=== PATIENT | female | born 1945 | race Caucasian/White ===

== ENCOUNTER → 2017-11-13 08:55 | Outpatient (CLI) | payer MEDICARE, SELFPAY ==
--- NOTE | 2017-11-13 09:16 | DI.MRI.S_ITS ---
BREAST MRI OF BOTH BREASTS - POST LUMPECTOMY: 11/13/2017 CLINICAL: Left breast cancer. Comparison is made to exams dated: 10/08/2017 mammogram, 10/02/2017 mammogram, and 08/29/2016 mammogram - [facility]. Informed consent was obtained from the patient. Axial T1, T2, and pre and post contrast T1 images were obtained. Bilateral background breast enhancement is minimal. Both breasts and the left axilla have post-operative findings. There is a 0.7 cm x 0.5 cm x 0.4 cm irregular mass with a spiculated margin in the left breast at 1 o'clock middle depth. This shows delayed washout type vascular enhancement. There is non-masslike enhancement immediately lateral to the mass measuring 10 x 6 mm. In aggregate the two measure 12 mm. There are no abnormal masses, enhancement or distortion in the right breast. No abnormal axillary lymph nodes. IMPRESSION: KNOWN BIOPSY PROVEN MALIGNANCY The 0.7 cm x 0.5 cm x 0.4 cm irregular mass in the left breast is a known biopsy positive for malignancy. There is non-masslike enhancement at it's lateral margin which is also consistent with malignancy. Together they measure 12 mm. Associated post biopsy marker. No MRI evidence of right breast malignancy or axillary abnormality. This exam was interpreted at Station ID: [id number]. Electronically Signed By: Aubrey Sellers M.D. cj/:11/13/2017 14:36:12 copy to: OTIS MERCHANT ACR BI-RADS Category 6: Known biopsy proven malignancy 3346F
[2017-11-13 11:04] LABS: Estimated Glomerular Filt Rate > 60.0 mL/min (>60)
== END ==
PROVIDERS: PCP Family Medicine; Visit Provider Surgery
DX: C50.412 Malignant neoplasm of upper-outer quadrant of left female breast (principal)
CPT/HCPCS: 36415; 82565; A9579; C8908

== ENCOUNTER 2017-12-17 07:42 | Day surgery (SDC) | payer MEDICARE, SELFPAY ==
[2017-12-03 16:59] VITALS: BMI 36.0
[2017-12-17] VITALS (8 sets, daily range): BP systolic 110–155; BP diastolic 49–83; PULSE 59–78; RESP 13–20; TEMP 36.1–37.1; O2SAT 94–99; BMI 36.0
--- NOTE | 2017-12-17 | PATH_ITS ---
[facility] Accession Number: [id number] . 01 Material submitted: . LEFT BREAST AND AXILLARY CONTENTS . 01 Clinical history: . A: SHORT STICH SUPERIOR, LONG STITCH LATERAL . 02 Diagnosis: Left Breast and Axillary Contents: Invasive carcinoma of the breast (see breast cancer summary below). . CAP CANCER CASE SUMMARY Invasive carcinoma of the breast: . Procedure: Total mastectomy with axillary tail. Specimen Laterality: Left. . Tumor site: Upper outer quadrant. Tumor size: Greatest dimension of invasive carcinoma is 1.0 cm. Histologic type: Invasive ductal carcinoma with distinct apocrine features. Histologic grade: Reasnor histologic score 7 of 9. Glandular/Tubular differentiation: Score 3 of 3. Nuclear Pleomorphism: Score 2 of 3. Mitotic Rate: Score 2 of 3. Overall Grade: Grade 2 of 3. Tumor focality: Single focus of invasive carcinoma. Ductal carcinoma in situ: Not identified. . Tumor Resection Margins Invasive carcinoma: Anterior: 0.9 cm. Posterior: 3.3 cm. Superior: 5.5 cm. Inferior: 11.3 cm. Medial: 10.6 cm. Lateral: 5.6 cm. . Ancillary studies: Hormone receptors and HER-2/roahn studies not performed on this specimen (presumably performed on previous biopsy). . Pathologic Stage: pT1b, pN0. [facility]/12/23/2017 . 02 Electronically signed: . Terry Baker MD, Pathologist NPI- [id number] . 01 Gross description: . Received in formalin, labeled left breast + axillary contents, is a left breast (5.7 cm AP, 17.5 cm SI, 16.8 cm ML) partially covered by the nipple areolar complex (3.7 x 2.8 cm). The axillary tail (8.5 x 8.0 x 2.7 cm) is attached. The specimen is oriented with two black sutures (short-superior, long-lateral). No localization wire is present. The specimen is serially sectioned ML into 39 slices with the medial and lateral resection margins as slice #1 and #39, respectively. The breast tissue is fatty and contains a garcia-white solid firm irregular mass (1.2 x 0.8 x 0.6 cm) within slices #25 and #26 involving the upper outer quadrant at approximately 1 o'clock-2 o'clock. The mass is 0.9 cm from the anterior, 3.3 cm from the posterior, 5.5 cm from the superior, 11.3 cm from the inferior, 10.6 cm from the medial, and 5.6 cm from the lateral resection margins. No other nodules, masses or lesions are identified. The nipple areolar complex is garcia and unremarkable. Multiple possible lymph nodes (0.1 cm-0.5 cm) are identified within the axillary tail. Ink code: purple-anterior; yellow-posterior; black-superior; orange-inferior; green-medial; blue-lateral. Section code: (A1) nipple; (A2) medial resection margin, perpendicularly sectioned, labor relations representative; (A3) slice #18, labor relations representative; (A4) slice #22, labor relations representative; (A5) slice #24, tissue adjacent to mass, labor relations representative; (A6-A8) slice #25, labor relations representative; (A9) slice #26, labor relations representative; (A10) slice #27, tissue adjacent to mass, labor relations representative; (A11) lateral resection margin, perpendicularly sectioned, labor relations representative; (A12) multiple intact lymph nodes. Note: Approximate total fixation time in formalin - 59 hours 30 minutes, calculated using a collection date of 12/17/2017 with no collection time given. ([id number]) /MRV . 02 Microscopic: . Sections from the breast reveal the grossly described tumor to be an infiltrating carcinoma, the cells of which have a distinct apocrine appearance. The nuclei are round with small distinct nucleoli and rather abundant foamy pale pink cytoplasm. The tumor cells are arranged primarily in broad sheets, although there are some areas in which tubule formation is present, but it is less than 10% of the tumor. Mitotic figures are identified and number approximately 5 to 6 per millimeter squared. Tumor cell nuclei are considered intermediate (score 2 of 3) and the tubular differentiation is low (score 3 of 3). In situ carcinoma is not identified. The largest area of invasive carcinoma is measured at approximately 1 cm on the slide with some resolving adjacent fat necrosis, which explains the gross measurement from 1.2 cm. There is no evidence of vascular invasion or lymphatic channel invasion, and the resection margins are widely free of tumor as was grossly described. . The sections from the axillary tail contain three small lymph nodes which are negative for malignancy. . 02 Pathologist provided ICD-10: C50.412 . 02 CPT . 113230 Performed at: 01 [facility] [address] [facility], [place], [place] [id number] MD Jonh Burks MD Phone: [phone] Performed at: 02 [facility] [id number] [place] [id number] MD Pasha Lagos MD Phone: [phone]
--- NOTE | 2017-12-17 | DI.NM.S_ITS ---
PROCEDURE: NM SENTINEL NODE W IMAGING RADIOPHARMACEUTICAL: 0.50 mCi Millipore filtered Tc-99m sulfur colloid x2. INDICATIONS: LEFT BREAST CANCER TECHNIQUE: The area around the nipple was prepped and draped in a sterile fashion. Tc-99m sulfur colloid was injected intra-dermally in the outer edge of the areola in the left breast. Images were obtained subsequently. A body contour outline was obtained. FINDINGS: There is no visualization of lymph nodes in the ipsilateral axilla despite two radiotracer injections. IMPRESSION: Administration of radiotracer into the left breast periareolar region for intra-operative sentinel lymph node localization. Dictated by: Shonna Hubbard MD, PhD on 12/17/2017 at 9:36 Approved by: Shonna Hubbard MD, PhD on 12/17/2017 at 9:39
--- NOTE | 2017-12-17 09:17 | SUR.PREOP ---
pt back to opd from radiology at 0900, family at side, no co's
--- NOTE | 2017-12-17 11:31 | PM.PREOP ---
Pre-operative Note Interval Note Pre-op Check: Yes History & Physical Reviewed by Physician Changes: No
--- NOTE | 2017-12-17 11:50 | SUR.OPER ---
Supine on padded OR bed, head on pillow, arms secured on padded arm boards at <90 degrees abduction, legs uncrossed, safety belt at thigh, tape over blanket over lower legs.
[2017-12-17] MEDS: CEFAZOLIN 2 GM/100 ML FROZ.PIGGY IV (12:00)
[2017-12-17] MEDS: BUPIVACAINE 0.5% (PF) VIAL 30 ML INJ (12:52)
[2017-12-17] MEDS: LIDOCAINE 1% W/EPI INJ 20 ML INJ (12:53)
--- NOTE | 2017-12-17 13:53 | PM.OP.1 ---
Operative Date/Time/Diagnoses Date of procedure: 12/17/17 Time of procedure: 13:53 Pre-op diagnosis: Recurrent left breast cancer Post-op diagnosis: same Procedure & Clinicians Procedure: Left breast skin sparing mastectomy with low axillary dissection Same procedure as scheduled: Yes Indications: Second primary left breast cancer Surgeon: Barb Orr Click Yes if Unassisted: Yes Anesthesia Type: General (Dr. Maki) and Local Operative Notes Findings: 1. Technetium sulfur colloid did not travel beyond the injection site. The sentinel node procedure did not work 2. Skin well vascularized with no evidence of locally advanced disease Closure Type: primary Specimen(s): other (Left breast and axillary contents to pathology in formalin) Implants & Drains: Applied: drain(s) (Nineteen Egyptian Noel drain in the inferior pocket) Estimated Blood Loss (mL): 40 Procedure in detail: After obtaining informed consent, the patient is brought to the operating room and placed in the supine position on the operating table. Following successful induction of general endotracheal anesthesia, appropriate padding of all bony prominences, and placement of appropriate monitors, the left chest and axilla are prepped and draped in the standard surgical fashion. A time-out was held per SCOAP protocol. We began by using the Navigator probe to identify the sentinel nodes in the left axilla. No sentinel node could be identified. Background in the room was 0, background in the axilla was 0. Review of the mapping studies following injection revealed no lymphatic uptake of the isotope. At this point, the sentinel node procedure was abandoned. We continued our procedure with a mastectomy. The existing inferior vertical incision was reopened and extended around the nipple along the lines of the existing incision created at the time of the patient's left breast reduction. Thin tissue flaps were created superiorly, medially, inferiorly, and laterally by using traction and counter-traction to carefully defined and then separate the subcutaneous tissue from the breast tissue on the left side. Judicious use of sharp dissection and Bovie cautery developed these planes. Dissection was continued superiorly to a level just inferior to the left clavicle, medially to the sternum, inferiorly to the inframammary fold and laterally to the latissimus. Dissection was continued superiorly into the axilla taking the low axillary contents with the specimen. The axillary vein was not skeletonized but dissection was continued medially to the pectoralis, laterally to the latissimus, and superiorly to visualize but not skeletonize the axillary vein. The breast was then removed from the chest wall in a medial to lateral fashion. The wound was then checked for hemostasis and irrigated copiously with warm water. The breast was passed from the table after marking it with a short stitch superior and a long stitch lateral. A 19 Egyptian Noel drain was placed in the inferior pocket and brought out in the inferior medial position. This was sewn into place with a nylon suture. The remaining breast incision was closed in 2 layers with Vicryl and Monocryl sutures. Exofen was applied to the incisions. All sponge, needle, and instrument counts were correct at the conclusion of the case. Complications: none Condition: stable Disposition: PACU Plan for aftercare: 1. Discharge to home 2. Follow up with me as previously scheduled.
[2017-12-17] MEDS: OXYCODONE/ACETAMINOPHEN 5/325 TABLET 1 TAB PO (15:04)
--- NOTE | 2017-12-17 15:58 | SUR.PHASEII ---
patient alert and oriented with steady gait. Drain teaching provided to patient and family. Pt verbalizes understanding through teachback method. Reports 1/10 pain and no nausea. To car via wc with spouse and daughter.
== END 2017-12-17 15:50 | disposition home or self-care (01) ==
PROVIDERS: PCP Family Medicine; Visit Provider Surgery
PROC: 0HTU0ZZ Resection of Left Breast, Open Approach (ICD-10-PCS; CPT 19304; principal; 2017-12-17 09:30)
DX: C50.912 Malignant neoplasm of unspecified site of left female breast (principal)
CPT/HCPCS: 19304; 78195; 88309; A9541; J0690; J1100; J2250; J2405; J2704; J3010

== ENCOUNTER 2017-12-23 00:55 | Emergency (ER) | payer MEDICARE, SELFPAY ==
[2017-12-23 00:59] VITALS: BP 156/82; PULSE 60; RESP 18; TEMP 37.1; O2SAT 99
[2017-12-23 01:00] VITALS: BP 156/82; PULSE 60; RESP 18; TEMP 37.1; O2SAT 99
[2017-12-23 01:06] VITALS: BP 156/82; PULSE 60; RESP 18; TEMP 37.1; O2SAT 99
--- NOTE | 2017-12-23 01:10 | ED.WOUNDLAC ---
HPI - Wound/Laceration General Chief Complaint: Wound/Laceration Stated Complaint: Bleeding in Drain Time Seen by Provider: 12/23/17 01:00 Source: patient and EMS Mode of arrival: EMS Limitations: no limitations History of Present Illness HPI narrative: 72F with history of breast cancer had L mastectomy a few days ago and presents by EMS for evaluation of significant bleeding from the incision as well as some filling of the RAYO. Her drain had been empty for few days and she had done quite well. She denies any pain, fever or chills and states that all of a sudden today while standing in the kitchen she developed bloody drainage and at that time felt a bit dizzy and lightheaded. She felt much better by her arrival in the bleeding had stopped. She had not yet contacted her surgeon. Onset (ago): minute(s) Location: chest 1. Place: home Patient tetanus UTD: Yes Context: accidental Associated symptoms: none Related Data Home Medications Medication Instructions Recorded Confirmed aspirin 81 mg tablet,delayed 81 mg PO DAILY 11/04/17 12/17/17 release azelastine 0.05 % eye drops 1 drp EYE-BOTH PRN PRN ml 11/04/17 12/17/17 cetirizine 10 mg tablet 5 mg PO DAILY PRN 11/04/17 12/17/17 cholecalciferol (vitamin D3) 5,000 5,000 unit PO DAILY 11/04/17 12/03/17 unit capsule clobetasol 0.05 % topical ointment 1 applictn TOP BID 11/04/17 12/03/17 fluticasone 250 mcg/actuation 1 inhalation INHALATION ONCE each 11/04/17 12/17/17 blister powder for inhalation magnesium 200 mg tablet 800 mg PO ONCE tab 11/04/17 12/03/17 omeprazole 20 mg capsule,delayed 20 mg PO DAILY 11/04/17 12/17/17 release tacrolimus 0.1 % topical ointment 1 applictn TOP BID 11/04/17 12/03/17 trazodone 150 mg tablet 75 mg PO DAILY 11/04/17 12/17/17 vitamin [id number] B1 1,000 ml IM SEEINSTR 11/04/17 11/04/17 mcg-100 mg/mL injection solution zinc 50 mg tablet 50 mg PO DAILY 11/04/17 12/03/17 calcium carbonate [Calcium 600] 1,200 mg PO DAILY 12/03/17 12/03/17 cyclosporine [Restasis] 2 drp EYE-BOTH DAILY 12/03/17 12/03/17 fluticasone [Flovent Diskus] 2 inh INHALATION Q12H 12/17/17 12/17/17 Previous Rx's Medication Instructions Recorded ondansetron 4 mg PO QID PRN #20 tab 12/17/17 oxycodone-acetaminophen [Percocet] 1 tab PO Q4-6H PRN #30 tab MDD 6 12/17/17 Allergies Allergy/AdvReac Type Severity Reaction Status Date / Time budesonide [From Symbicort] Allergy Mild Rash Verified 12/17/17 09:19 formoterol [From Symbicort] Allergy Mild Rash Verified 12/17/17 09:19 lanolin Allergy Mild Rash Verified 12/17/17 09:19 dust AdvReac Mild Sneezing Uncoded 12/03/17 17:11 Review of Systems Review of Systems All systems reviewed & are unremarkable except as noted in HPI and below Constitutional Denies chills, Denies fever(s), Denies lethargy and Denies weakness Eyes Denies change in vision, Denies eye discharge, Denies irritation and Denies loss of vision ENT Ears, Nose, Mouth, and Throat: Denies change in voice, Denies neck pain and Denies sore throat Cardiovascular Denies chest pain, Denies irregular heart rhythm, Denies lightheadedness, Denies palpitations, Denies dyspnea, Denies dyspnea on exertion and Denies orthopnea Respiratory Denies cough, Denies dyspnea, Denies dyspnea on exertion and Denies wheezing Gastrointestinal Gastrointestinal: Denies abdominal pain, Denies change in bowel habits, Denies diarrhea, Denies nausea and Denies vomiting Genitourinary Denies hematuria, Denies flank pain, Denies urinary incontinence and Denies urinary urgency Musculoskeletal Denies neck pain Integumentary/Breasts Denies pruritus, Denies erythema, Denies rash and Denies wounds Comments: Bleeding from surgical site Neurologic Denies confusion, Denies loss of vision and Denies weakness Psychiatric Denies anxiety, Denies confusion, Denies depression, Denies homicidal ideation and Denies suicidal ideation Endocrine Denies palpitations Hematologic/Lymphatic Denies easy bruising Allergic/Immunologic Denies wheezing PFSH Medical History Arthritis (Acute) Basal cell carcinoma (Acute) Breast reconstruction deformity (Acute ~2016) Eczema (Acute) GERD (gastroesophageal reflux disease) (Acute) Heart murmur (Acute) History of Crohn's disease (Acute) History of UTI (Acute) History of anemia (Acute) History of cardiac arrhythmia (Acute) History of pneumonia (Acute) History of squamous cell carcinoma (Acute ~2015) Impaired vision (Acute) Pain in both hands (Acute) Sinus drainage (Acute) Asthma (Chronic) Crohns disease (Chronic) Surgical History H/O lumpectomy (Resolved ~2014) History of bowel resection (Resolved) History of tonsillectomy (Resolved) Family History Father Diabetes mellitus Heart disease Mother Hypertension Family/Other Cancer Social History marital status: household members: spouse Smoking Status: Never smoker alcohol intake: current Exam Narrative Exam Narrative: GEN: AOx3 and in mild distress EYES: Pupils are equal, round, and reactive to light and accommodation. Extraoccular muscles are intact bilaterally. There is no subconjunctival hemorrhage or exudate. CHEST: Lungs are clear to auscultation bilaterally and free of wheezes, rales, or rhonchi. Heart rate is regular rhythm, there are no murmurs, clicks, rubs, or gallops. No tenderness, fluctuation, induration, active bleeding. Incisions are clean, dry and intact. ABD: Abdomen is soft and nontender. There is no guarding or rebound. Bowel sounds are normal in all 4 quadrants. There is no mass or organomegaly. EXT: Full painless ROM of all extremities with no loss of sensation or strength. SKIN: Warm, pink, and dry. No erythema or rash Initial Vital Signs Initial Vital Signs: Vital Signs Temperature 98.7 F 12/23/17 00:59 Pulse Rate 60 12/23/17 00:59 Respiratory Rate 18 12/23/17 00:59 Blood Pressure 156/82 H 12/23/17 00:59 Pulse Oximetry 99 12/23/17 00:59 Course Orders Ordered: ED Orders 12/23/17 01:23 Complete Blood Count AUTO DIFF Stat Consultations Consultation #1: Discussion of case with Dr. Blanton. Patient is no longer bleeding, there is no fluctuance or suggestion on exam of ongoing bleeding. H&H stable. Normal vital signs. He requests she contact the office this morning for follow-up Vital Signs - 8 hr 12/23/17 00:59 12/23/17 01:00 12/23/17 01:06 Temperature 98.7 F 98.7 F 98.7 F Pulse Rate 60 60 60 Respiratory Rate 18 18 18 Blood Pressure 156/82 H 156/82 H Blood Pressure [Right Arm] 156/82 H Pulse Oximetry 99 99 99 12/23/17 01:56 12/23/17 02:34 Temperature Pulse Rate 61 58 L Respiratory Rate 18 18 Blood Pressure 128/76 Blood Pressure [Right Arm] 126/72 Pulse Oximetry 94 96 MDM - Wound/Laceration Lab Data Result diagrams: 12/23/17 01:23 Lab Results 12/23/17 Range/Units 01:23 WBC 9.3 (4.5-11.0) X10^3/uL RBC 4.09 (4.0-5.2) X10^6/uL Hgb 12.0 (12.0-16.0) g/dL Hct 36.0 (36-46) % MCV 87.9 (80-100) fL MCH 29.4 (26-34) PG MCHC 33.5 (30-36) % RDW 14.6 (11.6-14.8) % Plt Count 197 (150-400) X10^3/uL Neut % (Auto) 65.3 (50-75) % Lymph % (Auto) 22.8 L (25-40) % Jessamine % (Auto) 10.2 (3-14) % Eos % (Auto) 1.0 L (2-4) % Baso % (Auto) 0.7 (0-2) % Neut # (Auto) 6100 H (2197-7853) /uL Discharge Plan Departure Patient Disposition: Home Clinical Impression: Postoperative bleeding from incision Discharge Date/Time: 12/23/17 02:35 Interventions: ED Discharge Assessment Last Done: 12/23/17 02:34 Instructions: DI for Post-Surgical Bleeding Activity Restrictions/Additional Instructions: *You have been diagnosed with [ postsurgical bleeding ] *What to do: *continue to take medications as directed *Follow up with your surgeon, call for an appointment. Let them know you were seen in the Emergency Department and that we ask that you be seen in follow up *Return to ER if you should have any new, worsening or concerning symptoms, such as [increased bleeding, dizziness, weakness, lightheadedness ] Prescriptions: No Action azelastine 0.05 % drops 1 drp EYE-BOTH PRN PRN (Reason: unknown) RF: 0 trazodone 150 mg tablet 75 mg PO DAILY RF: 0 omeprazole 20 mg capsule,delayed release(DR/EC) 20 mg PO DAILY RF: 0 fluticasone [Flovent Diskus] 250 mcg/actuation blister with device 1 inhalation INHALATION ONCE RF: 0 cetirizine [Aller-Esteban] 10 mg tablet 5 mg PO DAILY PRN (Reason: Allergies) RF: 0 vitamin K11-lrwrckg B1 1,000-100 mg/mL solution IM SEEINSTR RF: 0 aspirin 81 mg tablet,delayed release (DR/EC) 81 mg PO DAILY RF: 0 tacrolimus [Protopic] 0.1 % ointment 1 applictn TOP BID RF: 0 zinc 50 mg tablet 50 mg PO DAILY RF: 0 clobetasol 0.05 % ointment 1 applictn TOP BID RF: 0 cholecalciferol (vitamin D3) 5,000 unit capsule 5,000 unit PO DAILY RF: 0 magnesium 200 mg tablet 800 mg PO ONCE RF: 0 calcium carbonate [Calcium 600] 600 mg calcium (1,500 mg) Tablet 1,200 mg PO DAILY RF: 0 cyclosporine [Restasis] 0.05 % Dropperette 2 drp EYE-BOTH DAILY RF: 0 fluticasone [Flovent Diskus] 100 mcg/actuation Blister With Device 2 inh INHALATION Q12H RF: 0 oxycodone-acetaminophen [Percocet] 5-325 mg tablet 1 tab PO Q4-6H MDD 6 PRN (Reason: pain) Qty: 30 RF: 0 ondansetron 4 mg tablet,disintegrating 4 mg PO QID PRN (Reason: nausea and vomiting) Qty: 20 RF: 0 Referrals: Barb Orr MD [Physician] -
[2017-12-23 01:31] LABS: Add Manual Diff / Slide Review NO; Basophils Percent Auto 0.7 % (0-2); Lymphocytes Percent Auto 22.8 % (25-40); Mean Corpuscular HGB Conc 33.5 % (30-36); Mean Corpuscular Hemoglobin 29.4 PG (26-34); Mean Corpuscular Volume 87.9 fL (80-100); Monocytes Percent Auto 10.2 % (3-14); Neutrophils Absolute Auto 6100 /uL (3000-5900); Neutrophils Percent Auto 65.3 % (50-75); Platelet Count 197 X10^3/uL (150-400); Red Blood Cell Count 4.09 X10^6/uL (4.0-5.2); Red Cell Distribution Width 14.6 % (11.6-14.8); White Blood Cell Count 9.3 X10^3/uL (4.5-11.0)
[2017-12-23 01:56] VITALS: BP 126/72; PULSE 61; RESP 18; O2SAT 94
[2017-12-23 02:34] VITALS: BP 128/76; PULSE 58; RESP 18; O2SAT 96
== END 2017-12-23 02:35 | disposition home or self-care (01) ==
LOC: ED 02:37
PROVIDERS: Emergency Provider Emergency Medicine; PCP Family Medicine
DX: T85.838A Hemorrhage due to other internal prosthetic devices, implants and grafts, initial encounter (principal); Z98.890 Other specified postprocedural states
CPT/HCPCS: 36415; 85025; 99282; 99283

== ENCOUNTER → 2018-10-06 12:12 | Outpatient (CLI) | payer MEDICARE, SELFPAY ==
--- NOTE | 2018-10-06 | DI.MG.S_ITS ---
UNILATERAL RIGHT DIGITAL SCREENING MAMMOGRAM 3D/2D WITH CAD POST MASTECTOMY: 10/06/2018 CLINICAL: Routine screening. Personal history of left breast cancer. Family history of breast cancer. Comparison is made to exams dated: 11/13/2017 breast MRI - [facility], 10/08/2017 mammogram, and 10/02/2017 mammogram - [facility]. The tissue of right breast is predominantly fatty. Current study was also evaluated with a Computer Aided Detection (CAD) system. No significant masses, calcifications, or other findings are seen in the breast. There has been no significant interval change. IMPRESSION: NEGATIVE There is no mammographic evidence of malignancy. A 1 year screening mammogram is recommended. This exam was interpreted at Station ID: [id number]. NOTE: For mammograms, a report in lay terms will be sent to the patient. Approximately 15% of breast malignancies will not be visualized mammographically. In the management of a palpable breast mass, a negative mammogram must not discourage biopsy of a clinically suspicious lesion. Electronically Signed By: Jonh bañuelos/elaine:10/06/2018 16:28:09 letter sent: Normal Exam ACR BI-RADS Category 1: Negative 3341F
== END ==
PROVIDERS: PCP Family Medicine; Visit Provider Family Medicine
DX: Z12.31 Encounter for screening mammogram for malignant neoplasm of breast (principal); Z85.3 Personal history of malignant neoplasm of breast; Z80.3 Family history of malignant neoplasm of breast
CPT/HCPCS: 77063; 77067

== ENCOUNTER → 2020-09-25 13:38 | Outpatient (CLI) | payer MEDICARE, SELFPAY ==
--- NOTE | 2020-09-25 13:40 | DI.MG.S_ITS ---
UNILATERAL RIGHT DIGITAL DIAGNOSTIC MAMMOGRAM 3D/2D POST MASTECTOMY: 09/25/2020 CLINICAL: Personal history of left breast cancer. Comparison is made to exams dated: 10/21/2019 mammogram - [facility], 10/06/2018 mammogram, 11/13/2017 breast MRI - [facility], and 10/08/2017 mammogram - [facility]. The tissue of right breast is predominantly fatty. There are benign vascular calcifications in the right breast. No significant masses, calcifications, or other findings are seen in the breast. There has been no significant interval change. IMPRESSION: BENIGN There is no mammographic evidence of malignancy. A 1 year screening mammogram is recommended. Future imaging is recommended as follows: 10/21/2020 screening mammogram. This exam was interpreted at Station ID: Unknown. NOTE: For mammograms, a report in lay terms will be sent to the patient. Approximately 15% of breast malignancies will not be visualized mammographically. In the management of a palpable breast mass, a negative mammogram must not discourage biopsy of a clinically suspicious lesion. Electronically Signed By: Freya adam/elaine:09/25/2020 14:19:33 Entry: - 09/26/2020 07:48:38 ACR BI-RADS Category 2: Benign Finding(s) 3342F
--- NOTE | 2020-09-25 13:41 | DI.US.S_ITS ---
LIMITED ULTRASOUND OF LEFT BREAST: 09/25/2020 CLINICAL: Palpable left breast lump. Comparison is made to exams dated: 09/25/2020 mammogram - [facility], 10/21/2019 mammogram - [facility], 10/06/2018 mammogram, 11/13/2017 breast MRI - [facility], 10/08/2017 ultrasound biopsy, and 10/08/2017 mammogram - [facility]. Color flow and real-time ultrasound of the left breast upper inner quadrant were performed. Vázquez scale images of the real-time examination were reviewed. There also is a benign 0.5 cm x 0.4 cm x 0.4 cm oval cyst in the left breast at 11 o'clock posterior depth 14 cm from the nipple. This oval cyst is anechoic. This correlates as palpated. Color flow imaging demonstrates that there is no vascularity present. There is a 0.5 cm x 0.5 cm x 0.3 cm oval cyst in the left breast at 11 o'clock posterior depth 13 cm from the nipple. This oval cyst is hypoechoic and contains a hyperechoic nodule. This correlates as an incidental finding. Color flow imaging demonstrates that there is no vascularity present. IMPRESSION: PROBABLY BENIGN The 0.5 cm oval cyst in the left breast at 11 o'clock posterior depth corresponds to the palpable abnormality, is consistent with a simple cyst and is benign. The 0.5 cm incidental oval cyst in the left breast at 11 o'clock posterior depth is consistent with a complicated cyst, likely related to prior surgery and/or infection, and is probably benign. A follow-up left ultrasound in 6 months is recommended to demonstrate stability. Findings and recommendations were conveyed to the patient at time of exam. This exam was interpreted at Station ID: [id number]. Electronically Signed By: Freya adam/:09/25/2020 15:57:39 letter sent: Followup Recommended Ultrasound BI-RADS: 3 Probably benign
== END ==
PROVIDERS: PCP Physician Assistant Medical; Referring Provider Physician Assistant Medical; Visit Provider Physician Assistant Medical
DX: N63.22 Unspecified lump in the left breast, upper inner quadrant (principal); C50.912 Malignant neoplasm of unspecified site of left female breast
CPT/HCPCS: 76642; 77065; G0279

== ENCOUNTER → 2021-09-26 12:14 | Outpatient (CLI) | payer MEDICARE, SELFPAY ==
--- NOTE | 2021-09-26 | DI.MG.S_ITS ---
UNILATERAL RIGHT DIGITAL DIAGNOSTIC MAMMOGRAM 3D/2D POST MASTECTOMY: 09/26/2021 CLINICAL: Short term follow up of the right breast. Comparison is made to exams dated: 09/25/2020 mammogram - [facility], 10/21/2019 mammogram - [facility], and 10/06/2018 mammogram - [facility]. The tissue of right breast is predominantly fatty. No significant masses, calcifications, or other findings are seen in the breast. IMPRESSION: NEGATIVE There is no mammographic evidence of malignancy in the right breast. Left chest wall ultrasound is recommended (patient is status post left mastectomy) for the previously seen cyst, and will be performed following this exam. This exam was interpreted at Station ID: [id number]. NOTE: For mammograms, a report in lay terms will be sent to the patient. Approximately 15% of breast malignancies will not be visualized mammographically. In the management of a palpable breast mass, a negative mammogram must not discourage biopsy of a clinically suspicious lesion. Electronically Signed By: Mer carlton/:09/26/2021 12:38:57 ACR BI-RADS Category 1: Negative 3341F
--- NOTE | 2021-09-26 | DI.US.S_ITS ---
ULTRASOUND OF LEFT BREAST: 09/26/2021 CLINICAL: 12 month follow-up of cysts. Comparison is made to exam dated: 09/25/2020 [facility]. Color flow and real-time ultrasound of the left breast were performed on the areas of interest. Vázquez scale images of the real-time examination were reviewed. There are 2 adjacent simple cysts in the left breast at 10 o'clock posterior depth. These correlate as palpated. Color flow imaging demonstrates that there is no vascularity present. IMPRESSION: BENIGN There is no sonographic evidence of malignancy. The cluster of 2 simple cysts in the left breast is benign and likely post operative in nature. This exam was interpreted at Station ID: [id number]. Electronically Signed By: Mer carlton/:09/26/2021 13:09:37 Entry: - 09/28/2021 08:31:36 letter sent: Normal Exam Ultrasound BI-RADS: 2 Benign
== END ==
PROVIDERS: PCP Physician Assistant Medical; Referring Provider Physician Assistant Medical; Visit Provider Physician Assistant Medical
DX: R92.8 Other abnormal and inconclusive findings on diagnostic imaging of breast (principal); N60.02 Solitary cyst of left breast
CPT/HCPCS: 76642; 77065; G0279

== ENCOUNTER → 2021-10-11 12:16 | Outpatient (CLI) | payer MEDICARE, SELFPAY | PROVIDERS: PCP Physician Assistant Medical; Referring Provider Physician Assistant Medical; Visit Provider Physician Assistant Medical | DX: R01.1 Cardiac murmur, unspecified (principal); Z53.9 Procedure and treatment not carried out, unspecified reason ==

== ENCOUNTER → 2021-10-26 16:04 | Outpatient (CLI) | payer MEDICARE, SELFPAY ==
--- NOTE | 2021-10-26 16:05 | DI.ECHO.S_ITS ---
[place] [facility] +---------+ : : [address] : : : : [id number] : : : : Phone: [phone]---------+ Echocardiogram Report + + :Name: SONDRA SAMANIEGO Study Date: 10/26/2021 Height: 67 in : [facility] Reading[facility]: Weight: 209 lb : : Gender: Female BSA: 2.1 m2 : :: 1945 Age: 76 yrs BP: 147/89 mmHg: :Reason For Study: CARDIAC MURMUR : :Ordering Physician: CALVIN, : :ADALID Performed By: Romy Garcia : :Referring: ADALID SIMPSON : + + Interpretation Summary The left ventricle is normal in size and wall thickness. The ejection fraction is estimated to be 60-65%. The right ventricle is grossly normal size. The right ventricular systolic function is normal. No significant valvular pathology seen. The ascending aorta is mildly enlarged. The IVC is of normal diameter and collapses greater than 50% with a sniff. This suggests a low right atrial pressure of 3 mm Hg. Procedure: A two-dimensional transthoracic echocardiogram with color flow and Doppler was performed. The study quality was technically adequate. There is no prior echocardiogram noted for this patient. The patient was in sinus rhythm with heart rates between 55-76 bpm during the exam. Left Ventricle: The left ventricle is normal in size and wall thickness. There is no thrombus. The ejection fraction is estimated to be 60-65%. There are no focal wall motion abnormalities. Diastolic parameters suggest a relaxation abnormality of the left ventricle, consistent with probable normal filling pressures. Right Ventricle: The right ventricle is grossly normal size. The right ventricular systolic function is normal. Atria: The left atrium is moderately dilated. Right atrial size is normal. There is no Doppler evidence for an interatrial shunt. Mitral Valve: The mitral valve leaflets are slightly calcified. There is trace mitral regurgitation. Aortic Valve: The aortic valve is trileaflet. The aortic valve opens well. There is no aortic valve stenosis. There is trace aortic regurgitation. Tricuspid Valve: The tricuspid valve is normal. There is trace tricuspid regurgitation. Pulmonary artery pressures cannot be estimated because of the lack of a measurable TR jet velocity. Pulmonic Valve: The pulmonic valve is not well visualized. There is no pulmonic valvular regurgitation. Great Vessels: The aortic root is normal size. The ascending aorta is mildly enlarged. Artifact seen in the aortic arch. The IVC is of normal diameter and collapses greater than 50% with a sniff. This suggests a low right atrial pressure of 3 mm Hg. Pericardium/ Pleura There is no pericardial effusion. There is no pleural effusion. MMode/2D Measurements & Calculations LVIDd: 5.0 cm LVOT diam: 2.1 cm LVIDs: 3.3 cm Ao root diam: 3.2 cm FS: 35.1 % asc Aorta Diam: 4.0 cm IVSd: 0.85 cm Ao Arch Diam (Prox Trans): 3.3 cm LVPWd: 0.89 cm LV spain. diameter/BSA (cm/m^2): 2.4 LV sys. diameter/BSA (cm/m^2): 1.6 LA A2 area: 24.9 cm2 RA long axis: 5.0 cm LA A4 area: 24.3 cm2 RA area: 16.8 cm2 LA length (vol): 5.7 cm RA vol: 47.8 ml LA vol: 90.0 ml RA : 23.2 ml/m2 LA vol index: 43.7 ml/m2 IVC diam: 1.4 cm RVD1 (basal): 4.0 cm RVD2 (mid): 3.3 cm TAPSE: 1.7 cm Doppler Measurements & Calculations Ao V2 max: 174.3 cm/sec LVOT Max John: 106.6 cm/sec Ao V2 mean: 115.0 cm/sec LV V1 max P.5 mmHg Ao max P.1 mmHg LV V1 VTI: 25.8 cm Ao mean P.0 mmHg LOC(I,D): 2.5 cm2 Ao V2 VTI: 35.5 cm LOC(V,D): 2.1 cm2 sev ratio: 0.73 LOC indexed to BSA (cm^2/m^2): 1.2 MV E max john: 59.9 cm/sec PA V2 max: 103.3 cm/sec MV A max john: 89.0 cm/sec PA V2 mean: 66.3 cm/sec MV E/A: 0.67 PA mean P.0 mmHg Med Peak E' John: 6.9 cm/sec PA pr(Accel): 41.3 mmHg E/E' med: 8.7 Lat Peak E' John: 11.1 cm/sec E/E' lat: 5.4 E/e' average: 7.0 MV dec time: 0.32 sec SV(LVOT): 88.4 ml Reading Physician:05:34 PM
== END ==
PROVIDERS: PCP Physician Assistant Medical; Referring Provider Physician Assistant Medical; Visit Provider Physician Assistant Medical
DX: R01.1 Cardiac murmur, unspecified (principal); I77.89 Other specified disorders of arteries and arterioles
CPT/HCPCS: 93306

== ENCOUNTER → 2022-10-03 10:42 | Outpatient (CLI) | payer MEDICARE, SELFPAY ==
--- NOTE | 2022-10-03 | DI.MG.S_ITS ---
UNILATERAL RIGHT DIGITAL SCREENING MAMMOGRAM 3D/2D WITH CAD: 10/03/2022 CLINICAL: Routine screening. Personal history of left breast cancer. Family history of breast cancer. Comparison is made to exams dated: 09/26/2021 mammogram, 09/25/2020 mammogram - [facility], 10/21/2019 mammogram - [facility], and 10/06/2018 mammogram - [facility]. There are scattered areas of fibroglandular density in the right breast (category b / 25%-50% glandular tissue). Current study was also evaluated with a Computer Aided Detection (CAD) system. No significant masses, calcifications, or other findings are seen in the breast. There has been no significant interval change. IMPRESSION: NEGATIVE There is no mammographic evidence of malignancy. A 1 year screening mammogram is recommended. This exam was interpreted at Station ID: [id number]. NOTE: For mammograms, a report in lay terms will be sent to the patient. Approximately 15% of breast malignancies will not be visualized mammographically. In the management of a palpable breast mass, a negative mammogram must not discourage biopsy of a clinically suspicious lesion. Electronically Signed By: Uli valencia/elaine:10/04/2022 14:58:43 letter sent: Normal Exam ACR BI-RADS Category 1: Negative 3341F
== END ==
PROVIDERS: PCP Physician Assistant Medical; Referring Provider Physician Assistant Medical; Visit Provider Physician Assistant Medical
DX: Z12.31 Encounter for screening mammogram for malignant neoplasm of breast (principal); Z85.3 Personal history of malignant neoplasm of breast; Z80.3 Family history of malignant neoplasm of breast
CPT/HCPCS: 77063; 77067

== ENCOUNTER → 2023-10-06 13:26 | Outpatient (CLI) | payer MEDICARE, SELFPAY ==
--- NOTE | 2023-10-06 13:28 | DI.MG.S_ITS ---
UNILATERAL RIGHT DIGITAL SCREENING MAMMOGRAM 3D/2D WITH CAD: 10/06/2023 CLINICAL: Routine screening. Breast cancer history. Family history breast cancer. Comparison is made to exams dated: 10/03/2022 mammogram, 09/26/2021 mammogram, 09/25/2020 mammogram - [facility], and 10/21/2019 mammogram - [facility]. There are scattered areas of fibroglandular density in the right breast (category b / 25%-50% glandular tissue). Current study was also evaluated with a Computer Aided Detection (CAD) system. No significant masses, calcifications, or other findings are seen in the breast. There has been no significant interval change. IMPRESSION: NEGATIVE There is no mammographic evidence of malignancy. A 1 year screening mammogram is recommended. This exam was interpreted at Station ID: [id number]. NOTE: For mammograms, a report in lay terms will be sent to the patient. Approximately 15% of breast malignancies will not be visualized mammographically. In the management of a palpable breast mass, a negative mammogram must not discourage biopsy of a clinically suspicious lesion. Electronically Signed By: Trang Pelaez M.D., Ph.D. freddy/elaine:10/06/2023 15:48:42 letter sent: Normal Exam ACR BI-RADS Category 1: Negative 3341F
== END ==
PROVIDERS: PCP Physician Assistant Medical; Referring Provider Physician Assistant Medical; Visit Provider Physician Assistant Medical
DX: Z12.31 Encounter for screening mammogram for malignant neoplasm of breast (principal); Z85.3 Personal history of malignant neoplasm of breast; Z80.3 Family history of malignant neoplasm of breast; R92.321 Mammographic fibroglandular density, right breast
CPT/HCPCS: 77063; 77067

== ENCOUNTER → 2024-10-21 08:23 | Outpatient (CLI) | payer MEDICARE, SELFPAY ==
--- NOTE | 2024-10-21 08:25 | DI.MG.S_ITS ---
MM screening mammo unilat RT: 10/21/2024. BI-RADS: 1 CLINICAL: 79-year old female for right screening mammogram. No Tyrer-Cuzick risk score calculation due to the patient's personal history of breast cancer. Patient reports a history of left breast carcinoma diagnosed at age 70. Status-post left mastectomy with chemotherapy. No first-degree family history of breast cancer. Current reported family history of breast cancer: maternal aunt. The patient is status-post reduction mammoplasty. PRIOR EXAMS 10/06/2023, 10/03/2022, 09/26/2021. MAMMOGRAPHY TECHNIQUE: 2D and 3D (tomosynthesis) digital mammographic views obtained, with additional images as needed for full coverage. Current study was also evaluated with a Computer Aided Detection (CAD) system. DENSITY Right: B. There are scattered areas of fibroglandular density. MAMMOGRAPHY FINDINGS Right: No suspicious mass, asymmetry, microcalcification, or other abnormality seen. No significant change from comparison. IMPRESSION: Right * No evidence of malignancy. RECOMMENDATIONS Right * Annual screening mammography. OVERALL ASSESSMENT CATEGORY BI-RADS-1: Negative. [employer] recommends annual screening mammography beginning at age 40 for women with average risk of breast cancer. ELECTRONICALLY SIGNED: Brandon Hoang M.D. on 10/21/2024 at 01:38:37 PM PT Interpreting Station ID: [id number]
== END ==
LOC: MAMMO 08:24
PROVIDERS: PCP Physician Assistant Medical; Referring Provider Physician Assistant Medical; Visit Provider Physician Assistant Medical
DX: Z12.31 Encounter for screening mammogram for malignant neoplasm of breast (principal); R92.321 Mammographic fibroglandular density, right breast; Z85.3 Personal history of malignant neoplasm of breast; Z90.12 Acquired absence of left breast and nipple; Z80.3 Family history of malignant neoplasm of breast
CPT/HCPCS: 77063; 77067